=== PATIENT | male | born 1980 | race Two or more races ===

== ENCOUNTER 2021-01-02 07:41 | Emergency (ER) | payer OTHER ==
[~2021-01-02] VITALS: Ht 182.9 cm; Wt 103.4 kg
== END 2021-01-02 14:41 | disposition home or self-care (01) ==
LOC: ER 07:41
DX: K62.5 Hemorrhage of anus and rectum (principal)

== ENCOUNTER 2022-08-20 13:29 | Emergency (ER) | payer OTHER ==
[~2022-08-20] VITALS: Ht 182.9 cm; Wt 103.4 kg
== END 2022-08-20 17:33 | disposition home or self-care (01) ==
LOC: ER 13:29
DX: R10.84 Generalized abdominal pain (principal)

== ENCOUNTER 2023-03-31 07:14 | Emergency (ER) | payer OTHER ==
[~2023-03-31] VITALS: Ht 182.9 cm; Wt 103.4 kg
== END 2023-03-31 09:32 | disposition home or self-care (01) ==
LOC: ER 07:15
DX: S92.424A Nondisplaced fracture of distal phalanx of right great toe, initial encounter for closed fracture (principal); W22.8XXA Striking against or struck by other objects, initial encounter; Y93.89 Activity, other specified; Y92.89 Other specified places as the place of occurrence of the external cause; Z88.6 Allergy status to analgesic agent
CPT/HCPCS: 73630; 96372; 99284; J1885

== ENCOUNTER 2024-08-16 08:52 | Emergency (ER) | payer OTHER ==
[~2024-08-16] VITALS: Ht 182.9 cm; Wt 103.4 kg
[2024-08-16] MEDS ORDERED: NORFLEX100MG PO (09:44)
[2024-08-16] MEDS ORDERED: ORPHENADRINE CITRATE 30 MG/ML AMPUL IV ONE (09:45)
== END 2024-08-16 10:02 | disposition home or self-care (01) ==
LOC: ER 08:52
DX: M94.0 Chondrocostal junction syndrome [Tietze] (principal); Z88.6 Allergy status to analgesic agent
CPT/HCPCS: 96365; 99282; J2360

== ENCOUNTER 2025-03-14 07:21 | Emergency (ER) | payer OTHER ==
[~2025-03-14] VITALS: Ht 182.9 cm; Wt 103.4 kg
[~2025-03-14 07:21] MED LIST: NORFLEX100MG PO
[2025-03-14] MEDS ORDERED: HYOSCYAMINE SULFATE 0.125 MG TAB.SUBL ONE (08:56)
[2025-03-14] MEDS ORDERED: FAMOTIDINE/PF 20 MG/2 ML VIAL ONE (08:57)
[2025-03-14] MEDS ORDERED: FAMOtidine 10 MG/ML (4ML VIAL) IV PUSH ONE (09:00)
[2025-03-14] MEDS ORDERED: 0.9 % SODIUM CHLORIDE 1,000 ML IV ONE (09:00)
[2025-03-14] MEDS ORDERED: TRAMADOL HCL 50 MG TABLET PO ONE (09:00)
[2025-03-14] MEDS ORDERED: HYOSCYAMINE SULFATE 0.125 MG TAB.SUBL SL ONE (09:00)
[2025-03-14 09:39] LABS: BASO % 0.6 % (0.1-1.2); EOS # 0.29 (0.04-0.54); EOS % 2.7 % (0.7-7.0); LYMPH # 1.73 (1.18-3.74); LYMPH % 15.8 % (19.3-53.1); MEAN PLATELET VOLUME 9.30 fl (9.4-12.4); MONO # 1.05 (0.24-0.82); MONO % 9.6 % (4.7-12.5); NEUT # 7.75 (1.56-6.13); NEUT % 70.9 % (34.0-71.1); RED CELL DISTRIBUTION WIDTH 12.5 % (11.6-14.4)
[2025-03-14 10:04] LABS: URINE APPEARANCE Clear; URINE BILIRRUBIN Negative (NEGATIVE); URINE BLOOD Negative; URINE COLOR Yellow; URINE GLUCOSE Negative (NEGATIVE); URINE KETONE Trace (NEGATIVE); URINE LEUKOCYTE Negative; URINE NITRATE Negative; URINE PROTEIN Negative (NEGATIVE); URINE UROBILINOGEN 1.0 E.U./dl
[2025-03-14 10:05] LABS: ALT/SGPT 43.0 U/L (12-78); AST/SGOT 26.0 U/L (15-37); BILIRUBIN TOTAL 1.42 mg/dL (0.3-1.2); BUN CREA RATIO 18.0 (7.0-25.0); CREATININE SERUM 0.78 mg/dL (0.70-1.30); GFR 107.64; GLOBULINA 4.0 G/DL (2.4-3.5); GLUCOSE FASTING 97.0 mg/dL (65-100); OSMOLALITY SERUM 280.0 MOSM/KG (275-295)
[2025-03-14 10:06] LABS: URINE BACTERIA 10.7 uL (0.0-1933); URINE WBC 2.1 uL (0.0-23.2)
[2025-03-14 10:12] LABS: URINE CAST 0.00 uL (0.0-1.40); URINE EPITHELIAL CELLS 0.4 uL (0.0-38.8); URINE RBC 1.4 uL (0.0-20.8)
== END 2025-03-14 12:41 | disposition home or self-care (01) ==
LOC: ER 07:21
PROVIDERS: General Practice
DX: K57.92 Diverticulitis of intestine, part unspecified, without perforation or abscess without bleeding (principal); R10.9 Unspecified abdominal pain; R10.2 Pelvic and perineal pain; I10 Essential (primary) hypertension; Z88.6 Allergy status to analgesic agent
CPT/HCPCS: 36415; 74177; 96365; 96366; 99284; J3490; J7030; Q9965